=== PATIENT | male | born 1980 | race Caucasian/White ===

== ENCOUNTER 2016-04-23 19:08 | Emergency (ER) | payer SELFPAY ==
[~2016-04-23] VITALS: Ht 170.2 cm; Wt 64.7 kg
[~2016-04-23 19:08] MED LIST: LORT7.5T3 PO; SULF1SOL4 OS; Z.0.NO CURRENT MEDS
[2016-04-23 19:24] VITALS: BP 113/70; PULSE 59; RESP 16; TEMP 99.1; O2SAT 97
[2016-04-23 20:22] VITALS: BP 113/70; PULSE 59; RESP 16; TEMP 99.1; O2SAT 97
--- NOTE | 2016-04-23 20:48 | PD ---
HPI Chief Complaint: Oral / Dental Pain or Problem Time Seen by Provider: 20:47 Travel History International Travel<30 days: No Contact w/Intl Traveler<30days: No Traveled to known affect area: No History of Present Illness HPI 35-year-old male presents to the ED for evaluation of 3 day history of dental pain. Patient states the pain is in the top right side of the mouth. He states that the tooth has been broken for quite some time, just started experiencing pain "out of the blue." He denies radiation of the pain, difficulty swallowing his own secretions, difficulty opening closing the mouth. No treatment attempted at home. PFSH Past Medical History Diminished Hearing: No Musculoskeletal: Yes (LUMBAR AREA "BULGING DISC") Tetanus Vaccination: < 5 Years Influenza Vaccination: No Social History Alcohol Use: No Tobacco Use: Yes (1 PPD) Substance Use: No (DENIES) Allergies-Medications (Allergen,Severity, Reaction): Coded Allergies: Codeine (Verified Adverse Reaction, Mild, NAUSEA, 04/23/16) Reported Meds & Prescriptions Reported Meds & Active Scripts Active Augmentin (Amoxicillin-Clavulanate) 875-125 mg Tab 875 Mg PO BID 10 Days not for use in CrCl <30 ml/min. Lidocaine Viscous Liq 2 % Liqd 5 Ml SWISH-SWAL DIRECTED PRN Review of Systems Except as stated in HPI: all other systems reviewed are Neg Physical Exam Narrative GENERAL: Well-nourished, well-developed white male, sleeping on the stretcher, in no acute distress. SKIN: Warm and dry. HEAD: Normocephalic. Atraumatic. EYES: No scleral icterus. No injection or drainage. Pinpoint pupils bilaterally . EOMI. ENT: Pearly hernandes tympanic membranes bilaterally. Nasal mucosa is moist. Oropharynx without erythema, edema or exudate. DENTAL: Multiple missing teeth, multiple teeth with dental caries, multiple teeth broken to the gumline with roots exposed. Tooth #3 is broken to the gumline, mild erythema and tenderness of the surrounding mucosa. NECK: Supple, trachea midline. No JVD or lymphadenopathy. CARDIOVASCULAR: Regular rate and rhythm without murmurs, gallops, or rubs. . 2+ DP and radial pulses bilaterally. RESPIRATORY: Breath sounds clear and equal bilaterally. No accessory muscle use. GASTROINTESTINAL: Abdomen soft, non-tender, nondistended. + Bowel sounds MUSCULOSKELETAL: No cyanosis, or edema. BACK: Nontender without obvious deformity. No CVA tenderness. Data Data Last Documented VS Vital Signs Date Time Temp Pulse Resp B/P Pulse Ox O2 Delivery O2 Flow Rate FiO2 04/23/16 20:22 99.1 59 16 113/70 97 MDM Medical Decision Making Medical Screen Exam Complete: Yes Emergency Medical Condition: Yes Differential Diagnosis Dental caries versus dental abscess versus gingivitis versus deep space neck abscess versus other Narrative Course 35-year-old male presents to the ED for evaluation of 3 day history of dental pain. Patient states the pain is in the top right side of the mouth. He states that the tooth has been broken for quite some time, just started experiencing pain "out of the blue." He denies radiation of the pain, difficulty swallowing his own secretions, difficulty opening closing the mouth. Vitals reviewed. Upon entering the room the patient is sleeping. Pupils pinpoint bilaterally. Terrible dentition overall. Multiple teeth broken to the level of the gingiva with exposed nerve roots and multiple dental caries. He indicates tooth #3 is the source of the problem. There is mild erythema and tenderness of the surrounding gingiva. Uvula midline. Airway patent. Floor the mouth is soft. He was prescribed Augmentin twice a day 10 days, viscous lidocaine as needed for pain. He is provided with a list of community dental resources. He is instructed to take all medication as prescribed, even if symptoms resolve, follow up with the dentist. He indicated understanding of the instructions and is amenable to plan of care. He stable and discharged home. Diagnosis Primary Impression: Dental caries Additional Impression: Dental caries into pulp Referrals: Dentist Patient Instructions: Dental Caries (DC), General Instructions Additional Instructions: Rest, hydrate. Take all antibiotics as prescribed, even if her symptoms resolve. In other words take all this medication!! Use viscous lidocaine 3-4 times a day as needed for pain control. You may also use [id number] medications such as ibuprofen or Aleve as prescribed on the label. Follow-up with the dentist this week. Return to the ED for any urgent or emergent medical condition. Med/Other Pt SpecificInfo: Prescription(s) given Scripts Amoxicillin-Clavulanate (Augmentin)875-125 mg [id number] Mg PO BID 10 Days Ref 0 not for use in CrCl <30 ml/min. Prov:MacMahon,Julio C MD 04/23/16 Lidocaine Viscous Liq 2 % Liqd5 Ml SWISH-SWAL DIRECTED PRN (PAIN) #1 BOTTLE Ref 0 Prov:Julio C Rivas MD 04/23/16 Disposition: 01 DISCHARGE HOME Condition: Stable Belkys Naranjo Apr 23, 2016 20:48
[2016-04-23] MEDS ORDERED: LIDO1SOL8 SWISH-SWAL (20:57)
[2016-04-23] MEDS ORDERED: AUGM875T PO (20:57)
== END 2016-04-23 21:08 | disposition home or self-care (01) ==
LOC: PHED 19:08 → PHEFT 21:08
DX: K02.9 Dental caries, unspecified (principal); F17.210 Nicotine dependence, cigarettes, uncomplicated
CPT/HCPCS: 99282